=== PATIENT | female | born 1960 | race Caucasian/White ===

== ENCOUNTER → 2020-08-31 | Outpatient (CLI) | payer BC, OTHER ==
[~2020-08-31] MED LIST: ADVIL200 MG PO; ASPIRIN 81M81 MG/TA2 PO; ATIVAN 1MG T1 MG/TAB PO; FLOMAX 0.40.4 MG/CAP PO; IMITREX100 MG PO; LIPITOR20 MG PO; NORCO 325 MG-51 TAB PO; OMEGA-3 1000 MG1 CAP PO; SYNTHROID0.088 MG/T PO; TOPROL XL 50MG50 MG PO; VIMOVO 20 MG-501 TCP PO; ZOFRAN ODT4 MG PO
== END ==
LOC: COL.RAD 11:45
DX: I10 Essential (primary) hypertension (principal); N20.0 Calculus of kidney

== ENCOUNTER → 2020-09-21 | Outpatient (CLI) | payer BC, OTHER ==
[2020-09-21 08:41] LABS: CALCIUM 10.2 mg/dL (8.4-10.2); PHOSPHOROUS 2.7 mg/dL (2.5-4.5)
== END ==
LOC: COL.LAB
PROVIDERS: Internal Medicine Nephrology
DX: I10 Essential (primary) hypertension (principal); E83.52 Hypercalcemia

== ENCOUNTER → 2020-10-05 | Outpatient (CLI) | payer BC, OTHER | LOC: ZCOL.LAB 08:07 | PROVIDERS: Internal Medicine Nephrology | DX: E83.52 Hypercalcemia (principal); I10 Essential (primary) hypertension ==

== ENCOUNTER 2021-01-12 13:01 | Emergency (ER) | payer BC, OTHER ==
[~2021-01-12] VITALS: Ht 162.6 cm; Wt 71.8 kg
[2021-01-12 13:24] VITALS: TEMP 98.1
[2021-01-12 14:30] LABS: BASO % 0.2 % (0.0-2.0); EOS # 0.1 (0.0-0.7); GRAN # 7.6 (1.4-6.5); GRAN % 73.2 % (42.2-75.2); HEMATOCRIT 38.7 % (37.0-47.0); HEMOGLOBIN 12.7 g/dl (12.5-16.0); LYMPH # 1.6 (1.2-3.4); LYMPH % 15.5 % (20.0-51.0); MEAN CELL VOLUME 91 fl (80.0-100.0); MEAN CORPUSCULAR HEMOGLOBIN 30 pg (27.0-31.0); MEAN CORPUSCULAR HGB CONC 33 g/dl (33.0-37.0); MEAN PLATELET VOLUME 9.7 fl (7.4-10.4); MONO % 9.6 % (1.7-9.3); PLATELET COUNT 354 K/mm3 (130-400); RED BLOOD COUNT 4.25 M/mm3 (4.10-5.30); REDCELL DISTRIBUTION WIDTH-CV 12.2 % (11.5-14.5)
[2021-01-12 14:38] LABS: ALBUMIN 3.5 gm/dL (3.5-5.0); BILIRUBIN,TOTAL 0.5 mg/dL (0.0-1.0); CALCIUM 11.1 mg/dL (8.4-10.2); CREATININE, serum 1.05 (0.52-1.25); TOTAL PROTEIN 7.2 gm/dL (6.4-8.2)
[2021-01-12 14:46] LABS: COLLECTION METHOD CLEAN CATCH
[2021-01-12 15:27] LABS: AMORPHOUS CRYSTAL Present /uL; MUCOUS Present /lpf; PH 7 (5-8); SQUAMOUS EPITHELIAL 0-2 /hpf; URINE APPEARANCE Hazy; URINE BACTERIA None Seen /hpf; URINE BILIRUBIN Negative (NEGATIVE); URINE BLOOD 3+ (NEGATIVE); URINE CALCIUM OXALATE CRYSTAL Present /hpf; URINE COLOR Yellow; URINE GLUCOSE Negative (NEGATIVE); URINE KETONE Trace (NEGATIVE); URINE LEUKOCYTE ESTERASE Trace (NEGATIVE); URINE NITRATE Negative (NEGATIVE); URINE PROTEIN(semi-quant) Negative (NEGATIVE); URINE RBC >50 /hpf; URINE UROBILINOGEN Negative (NEGATIVE)
[2021-01-12] MEDS ORDERED: NORCO 325 MG-51 TAB PO (16:45)
[2021-01-12] MEDS ORDERED: FLOMAX 0.40.4 MG/CAP PO (16:45)
[2021-01-12] MEDS ORDERED: ZOFRAN ODT4 MG PO (16:45)
[2021-01-12 17:30] VITALS: BP 140/84; PULSE 79
[2021-01-13] MEDS ORDERED: TOPROL XL 50MG50 MG PO (14:31)
[2021-01-13] MEDS ORDERED: LIPITOR20 MG PO (14:34)
[2021-01-13] MEDS ORDERED: SYNTHROID0.088 MG/T PO (14:34)
[2021-01-13] MEDS ORDERED: OMEGA-3 1000 MG1 CAP PO (14:35)
[2021-01-13] MEDS ORDERED: ATIVAN 1MG T1 MG/TAB PO (14:35)
[2021-01-13] MEDS ORDERED: IMITREX100 MG PO (14:36)
[2021-01-13] MEDS ORDERED: ASPIRIN 81M81 MG/TA2 PO (14:36)
[2021-01-13] MEDS ORDERED: VIMOVO 20 MG-501 TCP PO (14:37)
[2021-01-13] MEDS ORDERED: ADVIL200 MG PO (14:38)
[2021-01-13] MEDS ORDERED: FLOMAX 0.40.4 MG/CAP PO (16:06)
== END 2021-01-12 17:30 | disposition home or self-care (01) ==
LOC: COL.ER 13:01
PROVIDERS: Emergency Medicine
DX: N13.2 Hydronephrosis with renal and ureteral calculous obstruction (principal); I10 Essential (primary) hypertension; Z86.16 Personal history of COVID-19
CPT/HCPCS: J1885; J2405; J3010; Q9967

== ENCOUNTER 2021-01-13 12:55 | Day surgery (SDC) | payer BC, OTHER ==
[~2021-01-13] VITALS: Ht 162.6 cm; Wt 72.5 kg
[~2021-01-13 12:55] MED LIST changes: -ADVIL200 MG PO; -ASPIRIN 81M81 MG/TA2 PO; -ATIVAN 1MG T1 MG/TAB PO; -IMITREX100 MG PO; -LIPITOR20 MG PO; -OMEGA-3 1000 MG1 CAP PO; -SYNTHROID0.088 MG/T PO; -TOPROL XL 50MG50 MG PO; -VIMOVO 20 MG-501 TCP PO
[2021-01-13] MEDS ORDERED: TOPROL XL 50MG50 MG PO (14:31)
[2021-01-13] MEDS ORDERED: SYNTHROID0.088 MG/T PO (14:34)
[2021-01-13] MEDS ORDERED: LIPITOR20 MG PO (14:34)
[2021-01-13] MEDS ORDERED: ATIVAN 1MG T1 MG/TAB PO (14:35)
[2021-01-13] MEDS ORDERED: OMEGA-3 1000 MG1 CAP PO (14:35)
[2021-01-13] MEDS ORDERED: IMITREX100 MG PO (14:36)
[2021-01-13] MEDS ORDERED: ASPIRIN 81M81 MG/TA2 PO (14:36)
[2021-01-13] MEDS ORDERED: VIMOVO 20 MG-501 TCP PO (14:37)
[2021-01-13] MEDS ORDERED: ADVIL200 MG PO (14:38)
[2021-01-13 14:54] VITALS: BP 133/65; PULSE 62; TEMP 98.1
[2021-01-13] MEDS ORDERED: FLOMAX 0.40.4 MG/CAP PO (16:06)
[2021-01-13 16:39] VITALS: BP 130/64; PULSE 67; TEMP 98.5
[2021-01-13 16:45] VITALS: BP 129/61; PULSE 71
[2021-01-13 17:00] VITALS: BP 142/59; PULSE 65
--- NOTE | 2021-01-13 17:35 | NUR ---
1629 Bedside report received from Celia [employer]YSICAL BIOCHEMI[employer]. 1635 Pt transported via cart and this RN from PACU to [facility] [place] [facility] [address] with this RN assist. Monitors on and alarms set. Call light within reach. present in room. Pt denies nausea and mentions slight headache which she states is better than preop. Pt requests applesauce, crackers, and water. Pt drowsy but answers all questions appropriately. 1649 Pt taking food and drink well. Pt still remains a little drowsy, but still answers all questions appropriately. 1726 Discharge instructions given to pt and . All questions answered to their satisfaction. mentions that they have a follow-up appt next , 01/20, with Dr. Rouse. 1730 Pt ambulates with RN assist to restroom and voids reddish urine with some noted blood clots. Pt then returns to [facility] [place] [address]. 1735 Pt discharged out of hospital via wheelchair and SALLY Yang assist, to private vehicle driven by .
== END 2021-01-13 17:35 | disposition home or self-care (01) ==
LOC: SDCO 12:55
DX: N20.2 Calculus of kidney with calculus of ureter (principal); E78.5 Hyperlipidemia, unspecified; Z86.16 Personal history of COVID-19; I10 Essential (primary) hypertension; Z87.891 Personal history of nicotine dependence; G43.909 Migraine, unspecified, not intractable, without status migrainosus; E03.9 Hypothyroidism, unspecified
CPT/HCPCS: C1769; C2617; J0690; J1100; J2405; J2550; J2704; J3010; J7120

== ENCOUNTER → 2021-05-31 | Outpatient (CLI) | payer BC, OTHER ==
[~2021-05-31] MED LIST changes: +ADVIL200 MG PO; +ASPIRIN 81M81 MG/TA2 PO; +ATIVAN 1MG T1 MG/TAB PO; +IMITREX100 MG PO; +LIPITOR20 MG PO; +OMEGA-3 1000 MG1 CAP PO; +SYNTHROID0.088 MG/T PO; +TOPROL XL 50MG50 MG PO; +VIMOVO 20 MG-501 TCP PO
== END ==
LOC: MC.RAD 16:15
DX: Z12.31 Encounter for screening mammogram for malignant neoplasm of breast (principal)

== ENCOUNTER → 2021-12-28 | Outpatient (CLI) | payer BC, OTHER | LOC: COL.RAD 10:06 | DX: D35.1 Benign neoplasm of parathyroid gland (principal); E21.3 Hyperparathyroidism, unspecified | CPT/HCPCS: A9500 ==

== ENCOUNTER → 2023-07-04 | Outpatient (CLI) | payer BC | LOC: MC.RAD 13:52 | DX: Z12.31 Encounter for screening mammogram for malignant neoplasm of breast (principal) ==